=== PATIENT | female | born 1945 | race Caucasian/White ===

== ENCOUNTER 2016-12-01 04:16 | Inpatient (IN) ==
--- NOTE | 2016-11-24 13:03 | EKG Report ---
Test Performed on : 11/24/2016 12:35:43 PM Test Reason : PAT Blood Pressure : / mmHG Vent. Rate : 070 BPM Atrial Rate : 070 BPM P-R Int : 152 ms QRS Dur : 090 ms QT Int : 394 ms P-R-T Axes : 068 -14 070 degrees QTc Int : 425 ms Normal sinus rhythm. Voltage criteria for left ventricular hypertrophy Nonspecific ST abnormality Abnormal ECG No previous ECGs available Confirmed by Abe SPENCE, Ugo Psatrana ([id number]) on 11/26/2016 9:12:57 AM
[2016-11-24 13:13] LABS: MANUAL DIFF NEEDED? NO; URINE MICRO REVIEW NEEDED? NO; URINE SOURCE CLEAN CATCH
[2016-11-24 13:26] LABS: BASO% 0.4 % (0.0-0.8); EOS# 0.25 X1000 (0.0-0.7); EOS% 2.7 % (0.0-10.0); HEMATOCRIT 40.3 % (37.0-47.0); IMM GRAN# 0.11 X1000 (0.0-0.04); IMM GRAN% 1.2 % (0.0-0.5); LYMPH# 2.99 X1000 (1.2-3.4); LYMPH% 32.4 % (20.5-51.1); MCH 29.3 PG (27-31); MCHC 32.3 g/dL (33-37); MCV 90.8 FL (81-99); MONO# 0.51 X1000 (0.11-0.59); MONO% 5.5 % (1.7-9.3); MPV 10.9 FL (7.4-10.4); NEUT% 57.8 % (42.2-75.2); PLT 287 X1000 (130-400); RBC 4.44 XMIL (4.2-5.4)
[2016-11-24 13:33] LABS: BILIRUBIN URINE NEGATIVE (NEGATIVE); BLOOD URINE NEGATIVE (NEGATIVE); COLOR YELLOW; GLUCOSE URINE NEGATIVE (NEGATIVE); LEUKOCYTES URINE NEGATIVE (NEGATIVE); NITRITE URINE NEGATIVE (NEGATIVE); PH URINE 5.5; PROTEIN URINE NEGATIVE (NEGATIVE); SP GRAVITY URINE 1.008; TURBIDITY URINE HAZY (CLEAR); UROBILINOGEN URINE NORMAL (NORMAL)
[2016-11-24 13:37] LABS: UR EPITHELIAL CELLS <10 /HPF (<10); URINE BACTERIA 1+ /HPF; URINE RBC <10 /HPF (<10); URINE WBC <10 /HPF (<10)
[2016-11-24 13:39] LABS: INR 0.96; PROTIME 10.1 Seconds (9.2-11.7); PTT 28.2 Seconds (22.0-36.0)
[2016-11-24 14:01] LABS: AGAP 14; BUN 17 mg/dL (8-22); CALCIUM 9.8 mg/dL (8.8-10.2); CHLORIDE 94 mmol/L (98-107); COSMO 275; POTASSIUM 4.3 mmol/L (3.5-5.1); SODIUM 133 mmol/L (136-145); TCO2 25 mmol/L (25-35)
[2016-12-01] MEDS ORDERED: PEPCID ONE (09:48)
[2016-12-01] MEDS ORDERED: REGLAN ONE (09:48)
[2016-12-01] MEDS ORDERED: LR 1,000 ML ONE (09:49)
[2016-12-01] MEDS ORDERED: KEFZOL 2 GM/D5W 2 GM/50 ML IVPB ONE (09:49)
[2016-12-01] MEDS ORDERED: TORADOL ONE (12:51)
[2016-12-01] MEDS ORDERED: VANCOMYCIN ONE (12:51)
[2016-12-01] MEDS ORDERED: CYKLOKAPRON 1,000 MG/NS 1,000 MG/100 ML IVPB ONE ×2 (12:52→12:53)
[2016-12-01] MEDS ORDERED: EXPAREL 1.3% ONE (12:52)
[2016-12-01] MEDS ORDERED: SODIUM CHLORIDE 0.9% ONE (12:52)
[2016-12-01] MEDS ORDERED: NEOSPORIN G.U. IRRIGANT ONE (12:52)
[2016-12-01] MEDS ORDERED: SENSORCAINE 0.25%/EPI 1:200,000 ONE (12:55)
[2016-12-01 14:06] LABS: URINE MICRO REVIEW NEEDED? NO; URINE SOURCE CATH
[2016-12-01 14:11] LABS: BILIRUBIN URINE NEGATIVE (NEGATIVE); BLOOD URINE NEGATIVE (NEGATIVE); COLOR STRAW; GLUCOSE URINE NEGATIVE (NEGATIVE); LEUKOCYTES URINE NEGATIVE (NEGATIVE); NITRITE URINE NEGATIVE (NEGATIVE); PH URINE 5.5; PROTEIN URINE NEGATIVE (NEGATIVE); SP GRAVITY URINE 1.006; TURBIDITY URINE CLEAR (CLEAR); UROBILINOGEN URINE NORMAL (NORMAL)
[2016-12-01 14:13] LABS: UR EPITHELIAL CELLS <10 /HPF (<10); URINE BACTERIA NEGATIVE /HPF; URINE RBC <10 /HPF (<10); URINE WBC <10 /HPF (<10)
[2016-12-01] MEDS ORDERED: FENTANYL ONE (15:38)
[2016-12-01] MEDS ORDERED: VERSED ONE (15:40)
[2016-12-01] MEDS ORDERED: DIPRIVAN 1% ONE (15:40)
[2016-12-01] MEDS ORDERED: XYLOCAINE-MPF 2% ONE (15:55)
[2016-12-01] MEDS ORDERED: OFIRMEV 1000 MG/ISOTONIC SOLN 1,000 MG/100 ML BOTTLE ONE (15:55)
[2016-12-01] MEDS ORDERED: DECADRON ONE (15:55)
[2016-12-01] MEDS ORDERED: ZOFRAN ONE (15:55)
[2016-12-01] MEDS ORDERED: LR 2,000 ML ONE (15:55)
[2016-12-01] MEDS ORDERED: NS 1,000 ML ONE (15:58)
[2016-12-01] MEDS ORDERED: MILK OF MAGNESIA PO PRN (16:00)
[2016-12-01] MEDS ORDERED: ZOFRAN IV PRN (16:00)
[2016-12-01] MEDS ORDERED: AMBIEN PO PRN (16:00)
[2016-12-01] MEDS ORDERED: TYLENOL PO SCH (17:00)
[2016-12-01] MEDS ORDERED: ULTRAM PO SCH (17:00)
[2016-12-01] MEDS: ULTRAM PO SCH (17:44)
[2016-12-01] MEDS: TYLENOL PO SCH (17:46)
[2016-12-01] MEDS: NS 1,000 ML IV SCH ×2 (17:46→21:16)
[2016-12-01] MEDS: MORPHINE IV PRN ×2 (18:06→22:56)
--- NOTE | 2016-12-01 18:44 | OPERATIVE NOTE ---
PROCEDURE DATE: 12/01/2016 PREOPERATIVE DIAGNOSIS: Left knee degenerative joint disease. POSTOPERATIVE DIAGNOSIS: Left knee degenerative joint disease. PROCEDURE PERFORMED: Left total knee arthroplasty using a [employer] size 7 femoral component, a size 7 tibial base plate, a 14 mm articular insert, and a 38 mm patellar component. ANESTHESIA: Spinal. SURGEON: Benny Durham MD. MIXER BLENDER: Mari Bhatia, Certified Registered Nurse Practitioner or RETURN CHECKER. SECOND MIXER BLENDER: Was David Helton PA-C. THIRD MIXER BLENDER: Was Sihv Johnson RN. COMPLICATIONS: None. BLOOD LOSS: Minimal. TOURNIQUET TIME: Approximately an hour and a half. DRAINS: Hemovac x1. DESCRIPTION OF PROCEDURE: The patient brought to operative suite and placed in the supine position. After successful administration of spinal anesthesia a well-padded tourniquet was placed on the left proximal thigh and the left lower extremity was prepped and draped in usual sterile fashion. Leg was exsanguinated. Tourniquet insufflated to 400 torr. Longitudinal incision was made beginning at the superior pole of the patella and extended distally to the tibia tuberosity. It was dissected sharply through the skin. Full-thickness skin flaps were elevated medially and laterally. A medial arthrotomy was made with a vastus snip. The medial capsule was elevated off the medial tibial plateau. The prepatellar fat pad, ACL, PCL, medial meniscus, lateral meniscus were excised. A drill was then inserted into the center of the distal femur. An intramedullary guide was placed. Cutting block was pinned in place. The distal cut was made with the oscillating saw. The femur was sized to size 7. A size 7 cutting block was pinned in place. Anterior cuts, chamfer cuts, and posterior condylar cuts were made with the oscillating saw. Marginal osteophytes removed with rongeur. A box cutting block was pinned in place. A box cut was made a box osteotome and oscillating saw. The posterior condyle osteophytes removed with curved osteotome and rongeur. Attention was then directed to the tibia. A drill was entered in the center of the tibia. An intramedullary guide was placed. The line was checked with drop kane, referencing off the anterior cortex, tibia and the second ray of the foot, and taking 4 mm off the low side of the tibia which, in this case, was medially. The tibial cutting block was pinned in place. The articular surfaces of the tibial plateau was made with the oscillating saw. The flexion-extension gaps were checked and balanced at 14 mm. The tibia was sized to a size 7. A size 7 guide was used for the fin punch. The tibial trial, femoral trial, and 14 mm articular insert were placed, taken through range of motion. Found to be of excellent alignment and balancing range of motion, and patellar tracking. Attention was then directed to the patella and 9 mm of the articular surface patella removed with the oscillating saw. The patella sized to a size 38. A size 38 guide was used to drill peg holes. Offset was chamfered 30 to 45 degrees. Patella trial was placed, taken through range of motion and found to have excellent patella tracking. All trials were then removed. The knee was copiously irrigated and dried, being certain all bone debris was removed. The tibial component, femoral component, patellar component were cemented in place, excess cement being removed with a [place]. Once the cement had hardened, excess cement was again removed with an osteotome. The knee was again copiously irrigated and dried, being certain all bone and cement were removed. A drain was placed exiting superior laterally and buried in the lateral gutter. The medial arthrotomy was closed with a running V-Loc suture. The skin edge approximated with 2-0 Vicryl. Skin was closed with 3-0. A sterile dressing was applied. The patient tolerated the procedure well without complication. At the end the procedure, all counts correct x2. The patient was transferred to the recovery room in stable condition. cc: Benny Durham MD
[2016-12-01] MEDS: OXY IR PO PRN (19:23)
[2016-12-01] MEDS ORDERED: COLACE PO SCH (21:00)
[2016-12-01] MEDS: PERIDEX MT SCH (21:16)
[2016-12-01] MEDS: KEFZOL 2 GM/D5W 2 GM/50 ML IVPB IV SCH (21:16)
[2016-12-01] MEDS: CATAPRES PO SCH (21:17)
[2016-12-01] MEDS: CELEBREX PO SCH (21:17)
[2016-12-01] MEDS: GLUCOPHAGE XR PO SCH (21:17)
[2016-12-01] MEDS: COZAAR PO SCH (21:17)
[2016-12-01] MEDS: COLACE PO SCH (21:17)
[2016-12-01] MEDS: LYRICA PO SCH (21:17)
[2016-12-01] MEDS: FLEXERIL PO PRN (22:38)
[2016-12-02] MEDS: TYLENOL PO SCH ×4 (03:15→21:38)
[2016-12-02] MEDS: ULTRAM PO SCH ×4 (03:15→21:38)
[2016-12-02] MEDS ORDERED: XARELTO PO SCH (06:00)
[2016-12-02] MEDS: KEFZOL 2 GM/D5W 2 GM/50 ML IVPB IV SCH (06:09)
[2016-12-02] MEDS: SYNTHROID PO SCH (06:09)
[2016-12-02] MEDS: OXY IR PO PRN ×5 (06:11→23:39)
[2016-12-02 06:30] LABS: AGAP 11; BUN 20 mg/dL (8-22); CALCIUM 8.7 mg/dL (8.8-10.2); CHLORIDE 100 mmol/L (98-107); COSMO 280; POTASSIUM 5.1 mmol/L (3.5-5.1); SODIUM 135 mmol/L (136-145); TCO2 24 mmol/L (25-35)
[2016-12-02] MEDS: NS 1,000 ML IV SCH (06:57)
[2016-12-02 07:13] LABS: HEMOGLOBIN 11.3 g/dL (12.0-16.0)
[2016-12-02] MEDS: PEPCID PO SCH (08:57)
[2016-12-02] MEDS: CELEBREX PO SCH ×2 (08:57→21:00)
[2016-12-02] MEDS: COLACE PO SCH ×2 (08:58→21:39)
[2016-12-02] MEDS: LYRICA PO SCH ×2 (08:58→21:39)
[2016-12-02] MEDS: PERIDEX MT SCH ×2 (08:59→21:39)
[2016-12-02] MEDS ORDERED: DECADRON IV ONE (09:00)
[2016-12-02] MEDS ORDERED: COZAAR PO SCH (09:00)
[2016-12-02] MEDS: CALTRATE 600 + D PO SCH (09:00)
[2016-12-02] MEDS: CATAPRES PO SCH ×2 (09:02→21:38)
[2016-12-02] MEDS: FLEXERIL PO PRN (13:31)
[2016-12-02] MEDS: GLUCOPHAGE XR PO SCH (21:39)
[2016-12-02] MEDS: COZAAR PO SCH (21:39)
[2016-12-03] MEDS: TYLENOL PO SCH ×2 (03:23→09:37)
[2016-12-03] MEDS: ULTRAM PO SCH ×2 (03:23→09:37)
[2016-12-03 06:27] LABS: HEMATOCRIT 30.4 % (37.0-47.0); HEMOGLOBIN 9.9 g/dL (12.0-16.0)
[2016-12-03] MEDS: OXY IR PO PRN (07:08)
[2016-12-03] MEDS: SYNTHROID PO SCH (07:08)
[2016-12-03 07:59] VITALS: BP 110/52
[2016-12-03] MEDS: COLACE PO SCH (09:37)
[2016-12-03] MEDS: PEPCID PO SCH (09:37)
[2016-12-03] MEDS: CALTRATE 600 + D PO SCH (09:37)
[2016-12-03] MEDS: CATAPRES PO SCH (09:37)
[2016-12-03] MEDS: LYRICA PO SCH (09:38)
[2016-12-03] MEDS: CELEBREX PO SCH (09:39)
[2016-12-03] MEDS: PERIDEX MT SCH (09:42)
--- NOTE | 2016-12-03 12:28 | DISCHARGE SUMMARY ---
ADMISSION DATE: 12/01/2016 DISCHARGE DATE: 12/03/2016 DISCHARGE DIAGNOSIS: Left knee degenerative joint disease status post left total knee arthroplasty. DISCHARGE MEDICATIONS: See discharge medication list. DISPOSITION: Patient discharged home. INSTRUCTIONS: Instructions for home health physical therapy. Instructed to return for any sign or symptoms of infection or deep venous thrombosis. FOLLOWUP: Instructed to return see Dr. Durham's PA, Mesha Olmos, on December 13. HOSPITAL COURSE: On day of admission, patient underwent a left total knee arthroplasty. Her postoperative course was complicated only by bleeding from the wound the following day. We put a compressive dressing and Steri-Strips and this resolved. At discharge she is afebrile, tolerating a regular diet, ambulating well with physical therapy. Her wound is clean, dry, intact. She is discharged home in stable condition with instructions to follow up as described above. cc: Benny Durham MD
[2016-12-05] MEDS ORDERED: VITAMIN D PO SCH (09:00)
== END 2016-12-03 10:42 | disposition home health service (06) ==
LOC: SURHOLD 04:16 → 4N 13:45
PROVIDERS: ADMIT Orthopaedic Surgery; ATTEND Orthopaedic Surgery